=== PATIENT | female | born 1985 | race African-American/Black ===

== ENCOUNTER 2016-07-26 09:56 | Inpatient (IN) | payer MEDICAID, OTHER ==
[~2016-07-26] VITALS: Ht 165.1 cm; Wt 53.5 kg
[~2016-07-26 09:56] MED LIST: PREN-88 PO
[2016-07-26] MEDS ORDERED: SODIUM CHLORIDE 0.9% 1,000 ML IV ONE ×2 (11:30→13:30)
[2016-07-26] MEDS ORDERED: ACETAMINOPHEN 325MG TABLET PO ONE (11:30)
[2016-07-26 11:46] LABS: BASOPHILS % 0.6 % (0.0-2.0); DIFFERENTIAL COMMENT 0; EOSINOPHILS % 0.4 % (0.0-5.0); HEMATOCRIT. 26.9 % (36.0-48.0); HEMOGLOBIN. 8.5 g/dL (12.0-16.0); LYMPHOCYTES % 23.4 % (20.0-50.0); MEAN CORPUSCULAR HEMOGLOBIN 23.7 pg (28.0-32.0); MEAN CORPUSCULAR HGB CONC 31.5 g/dL (31.0-37.0); MEAN CORPUSCULAR VOLUME 75.3 fL (81.0-99.0); NEUTROPHILS % 70.6 % (40.0-76.0); PLATELET 222 x1000/uL (130-400); RED BLOOD CELL COUNT 3.57 mill/uL (4.2-5.4); RED CELL DISTRIBUTION WIDTH 18.4 % (11.6-14.6); WHITE BLOOD COUNT 7.5 x1000/uL (4.5-11.0)
[2016-07-26 11:53] LABS: CHLORIDE 105 mEq/L (98-107); INDEX HEMOLYSI 1 (1-3); INDEX ICTERIC 1 (1-4); INDEX LIPEMIC 1 (1-3)
[2016-07-26 11:53] LABS: CLARITY URINE CLEAR (CLEAR); COLOR URINE YELLOW (YELLOW); GLUCOSE URINE NEGATIVE (NEGATIVE); KETONES URINE NEGATIVE (NEGATIVE); LEUKOCYTE ESTERASE URINE TRACE (NEGATIVE); NITRITE URINE NEGATIVE (NEGATIVE); OCCULT BLOOD URINE 3+ (NEGATIVE); PROTEIN URINE 1+ (NEGATIVE); SPECIFIC GRAVITY URINE 1.008 (1.005-1.030); UROBILINOGEN URINE 0.2 E.U./dL (0.2-1.0)
[2016-07-26 12:03] LABS: ANION GAP 13; CALCIUM 8.4 mg/dL (8.5-10.1); CARBON DIOXIDE 25 mEq/L (21-32); UREA NITROGEN BLOOD 5 mg/dL (7-21); eGFR > 60 mL/min (>60)
[2016-07-26 12:15] LABS: B-HCG QUANTITATIVE 6789 mIU/mL (<3)
[2016-07-26 12:19] LABS: RBC URINE TNTC /hpf (0-2); SQUAMOUS EPITHELIAL CELL URINE 2+ /lpf (RARE/1+); WBC URINE 0-2 /hpf (0-2)
[2016-07-26 12:20] LABS: BACTERIA URINE 2+
[2016-07-26 15:34] VITALS: BP 113/73
[2016-07-26] MEDS ORDERED: DEXT 5%/0.45% NACL 1000ML 1,000 ML IV SCH (15:58)
[2016-07-26 16:00] VITALS: BP 113/70
[2016-07-26] MEDS ORDERED: ONDANSETRON HCL 4MG/2ML VIAL IV PRN ×2 (16:00→22:00)
[2016-07-26 20:00] VITALS: BP 103/55
[2016-07-26] MEDS ORDERED: ROCURONIUM BROMIDE 10MG/ML VIAL 5ML IV ONE (20:21)
[2016-07-26] MEDS ORDERED: PROPOFOL 200MG/20ML VIAL IV ONE (20:21)
[2016-07-26] MEDS ORDERED: FENTANYL CITRATE/PF 50MCG/ML 2ML VIAL ONE (20:21)
[2016-07-26] MEDS ORDERED: METOCLOPRAMIDE HCL 10MG/2ML VIAL ONE (20:22)
[2016-07-26] MEDS ORDERED: ONDANSETRON HCL 4MG/2ML VIAL ONE (20:22)
[2016-07-26] MEDS ORDERED: ACETAMINOPHEN 650MG SUPP PR PRN (22:00)
[2016-07-26] MEDS ORDERED: GLYCOPYRROLATE 0.2 MG/ML 2ML VIAL ONE (22:02)
[2016-07-26] MEDS ORDERED: SODIUM CHLORIDE 0.9% 1,000 ML IV SCH (22:22)
[2016-07-26] MEDS: HYDROMORPHONE HCL/PF 2MG/ML CPJ IV PRN ×2 (22:37→22:44)
[2016-07-26] MEDS ORDERED: CEFAZOLIN 1000MG PREMIX 50 ML IV SCH (23:00)
[2016-07-26 23:35] VITALS: BP 106/74
[2016-07-27] VITALS (14 sets, daily range): BP systolic 103–116; BP diastolic 52–75
[2016-07-27] MEDS: DEXT 5%/0.45% NACL KCL 20MEQ/L 1,000 ML IV SCH ×2 (01:07→11:23)
[2016-07-27] MEDS: CEFAZOLIN 1000MG PREMIX 50 ML IV SCH ×3 (01:07→16:58)
[2016-07-27 06:04] LABS: MEAN CORPUSCULAR HEMOGLOBIN 24.1 pg (28.0-32.0); MEAN CORPUSCULAR HGB CONC 32.6 g/dL (31.0-37.0); MEAN PLATELET VOLUME 9.3 fl (7.4-10.4); PLATELET 177 x1000/uL (130-400); RED BLOOD CELL COUNT 2.75 mill/uL (4.2-5.4); RED CELL DISTRIBUTION WIDTH 18.5 % (11.6-14.6); WHITE BLOOD COUNT 10.6 x1000/uL (4.5-11.0)
[2016-07-27 06:31] LABS: ANION GAP 12; CALCIUM 7.3 mg/dL (8.5-10.1); CARBON DIOXIDE 21 mEq/L (21-32); CHLORIDE 110 mEq/L (98-107); INDEX HEMOLYSI 1 (1-3); INDEX ICTERIC 1 (1-4); INDEX LIPEMIC 1 (1-3); eGFR > 60 mL/min (>60)
[2016-07-27 06:36] LABS: UREA NITROGEN BLOOD 3 mg/dL (7-21)
[2016-07-27] MEDS: MORPHINE SULFATE 2 MG/ML CPJ (NOT FOR IM USE) IV PRN ×2 (06:40→19:05)
[2016-07-27 07:48] LABS: DIFFERENTIAL COMMENT 1; HEMATOCRIT. 20.3 % (36.0-48.0); HEMOGLOBIN. 6.6 g/dL (12.0-16.0)
[2016-07-27] MEDS: ACETAMINOPHEN 325MG TABLET PO PRN ×2 (08:55→18:06)
[2016-07-27] MEDS: FERROUS SULFATE 325MG TABLET PO SCH ×2 (14:50→19:05)
[2016-07-27 18:03] LABS: HYPOCHROMASIA 1+; PLATELET ESTIMATE NORMAL
[2016-07-27 18:04] LABS: ANISOCYTOSIS 2+
[2016-07-28] VITALS: BP 101/57
[2016-07-28] MEDS: DEXT 5%/0.45% NACL KCL 20MEQ/L 1,000 ML IV SCH ×2 (01:17→14:12)
[2016-07-28] MEDS ORDERED: CEFAZOLIN 1000MG PREMIX 50 ML IV SCH (02:00)
[2016-07-28 04:00] VITALS: BP 105/65
[2016-07-28] MEDS: MORPHINE SULFATE 2 MG/ML CPJ (NOT FOR IM USE) IV PRN (06:48)
[2016-07-28 08:00] VITALS: BP 108/63
[2016-07-28] MEDS: FERROUS SULFATE 325MG TABLET PO SCH ×3 (08:39→17:35)
[2016-07-28 12:00] VITALS: BP 96/58
[2016-07-28 16:00] VITALS: BP 102/65
[2016-07-28 18:11] VITALS: BP 102/65
== END 2016-07-28 18:30 | disposition home or self-care (01) | DRG 545 ==
LOC: ER 12:12 → 6EST 13:25
PROVIDERS: ADMIT Obstetrics & Gynecology; ATTEND Obstetrics & Gynecology
PROC: 0UB50ZZ Excision of Right Fallopian Tube, Open Approach (ICD-10-PCS; 2016-07-26)
PROC: 10T20ZZ Resection of Products of Conception, Ectopic, Open Approach (ICD-10-PCS; principal; 2016-07-26 20:00)
PROC: 30233N1 Transfusion of Nonautologous Red Blood Cells into Peripheral Vein, Percutaneous Approach (ICD-10-PCS; 2016-07-27)
DX: O00.90 Unspecified ectopic pregnancy without intrauterine pregnancy (principal); K66.1 Hemoperitoneum; Z87.891 Personal history of nicotine dependence; Z3A.11 11 weeks gestation of pregnancy
CPT/HCPCS: 36415; 76801; 80048; 81001; 84702; 85025; 86850; 86900; 86920; 88302; 96360; 96361; 99285; J0690; J1170; J2270; J2405; J2704; J2765; J3010; J3490; J7030; J7040; P9016